=== PATIENT | female | born 1970 | race Caucasian/White ===

== ENCOUNTER 2016-08-26 00:11 | Emergency (ER) | payer OTHER | END 2016-08-26 01:44 | disposition home or self-care (01) | LOC: ER 00:11 | DX: J10.1 Influenza due to other identified influenza virus with other respiratory manifestations (principal); I10 Essential (primary) hypertension; Z98.890 Other specified postprocedural states; Z79.899 Other long term (current) drug therapy | CPT/HCPCS: 71020; 81025; 87400; 99283 ==